=== PATIENT | female | born 1975 | race Caucasian/White ===

== ENCOUNTER 2016-11-04 23:13 | Emergency (ER) | payer SELFPAY ==
[~2016-11-04] VITALS: Ht 165.1 cm; Wt 104.5 kg
[2016-11-05] MEDS ORDERED: BACITRACIN ZINC OINT UDPKT TOP ONE (00:30)
[2016-11-05] MEDS ORDERED: IBUPROFEN 800MG TABLET PO ONE (01:30)
[2016-11-05 02:50] VITALS: BP 137/96
== END 2016-11-05 03:00 | disposition home or self-care (01) ==
LOC: EDSEX 23:17 → ER 23:17
DX: S01.91XA Laceration without foreign body of unspecified part of head, initial encounter (principal); F17.200 Nicotine dependence, unspecified, uncomplicated; V49.49XA Driver injured in collision with other motor vehicles in traffic accident, initial encounter; Y93.89 Activity, other specified; Y99.9 Unspecified external cause status; Y92.89 Other specified places as the place of occurrence of the external cause
CPT/HCPCS: 12002; 99283; A4217; Z7610

== ENCOUNTER 2016-11-14 19:40 | Emergency (ER) | payer SELFPAY ==
[~2016-11-14] VITALS: Ht 165.1 cm; Wt 104.1 kg
[2016-11-14 19:51] VITALS: BP 159/91
[2016-11-14] MEDS ORDERED: ACETAMINOPHEN 325MG TABLET PO ONE (20:30)
== END 2016-11-14 20:47 | disposition home or self-care (01) ==
LOC: ER 20:26
DX: Z48.02 Encounter for removal of sutures (principal); R51 Headache
CPT/HCPCS: 99282; Z7610